=== PATIENT | female | born 1975 | race Caucasian/White ===

== ENCOUNTER → 2016-05-15 | Outpatient (CLI) | payer BC ==
--- NOTE | 2016-05-15 12:59 | ECHOF ---
Referral Reason:R00.2 palpitation R07.9 chest pain MEASUREMENTS -------- HEIGHT: 176.5 cm WEIGHT: 122.5 kg BP: RVIDd: 2.8 cm (< 3.3) IVSd: 1.2 cm (0.6 - 1.1) LVIDd: 4.6 cm (3.9 - 5.3) LVPWd: 1.4 cm (0.6 - 1.1) IVSs: 1.5 cm LVIDs: 3.6 cm LVPWs: 1.7 cm LAESV Index (A-L): 17.83 ml/m Ao Diam: 3.2 cm (2.0 - 3.7) LA Diam: 3.9 cm (2.7 - 3.8) MV EXCURSION: 19.089 mm (> 18.000) MV EF SLOPE: 48 mm/s (70 - 150) EPSS: 0.5 cm MV E Andreas: 0.96 m/s MV DecT: 214 ms MV A Andreas: 0.70 m/s MV E/A Ratio: 1.37 RAP: 5.00 mmHg RVSP: 15.43 mmHg FINDINGS -------- Sinus rhythm. Morbid Obesity There is mild concentric left ventricular hypertrophy. Overall left ventricular systolic function is low-normal with, an EF between 50 - 55 %. The right ventricle is normal in size. Normal LA size by volume 22+/-6 ml/m2. The right atrial size is normal. The aortic valve is trileaflet, and appears structurally normal. No aortic stenosis or regurgitation. Mild mitral regurgitation is present. Mild tricuspid regurgitation present. There is no evidence of pulmonary hypertension. The right ventricular systolic pressure, as measured by Doppler, is 15.43mmHg. There is no pulmonic regurgitation present. The aortic root size is normal. There is no pericardial effusion. CONCLUSIONS -------- 1. There is mild concentric left ventricular hypertrophy. 2. Overall left ventricular systolic function is low-normal with, an EF between 50 - 55 %. 3. Mild mitral regurgitation is present. 4. Mild tricuspid regurgitation present. 5. There is no evidence of pulmonary hypertension. 6. The right ventricular systolic pressure, as measured by Doppler, is 15.43mmHg. WAREHOUSE ORDER PICKER: Giovana Travis RDCS
== END | disposition home or self-care (01) ==
LOC: RADECHMAIN 10:38
PROVIDERS: ATTEND Family Medicine
DX: I08.1 Rheumatic disorders of both mitral and tricuspid valves (principal); I51.7 Cardiomegaly
CPT/HCPCS: 93225; 93226; 93306

== ENCOUNTER → 2017-01-15 | Outpatient (CLI) | payer BC ==
[2017-01-15 11:28] LABS: ALT 97 U/L (9-52); AST 110 U/L (14-36); Alkaline Phosphatase 122 U/L (38-126); Anion Gap 12 mmol/L; Blood Urea Nitrogen 11 mg/dL (7-17); Calcium 9.6 mg/dL (8.4-10.2); Carbon Dioxide 23 mmol/L (22-30); Chloride 101 mmol/L (98-107); Cholesterol 211 mg/dL (<200); Glucose 218 mg/dL (74-99); HDL Cholesterol 44 mg/dL (40-60); Non-African American GFR(MDRD) >60 (>60 ml/min/1.73 sqM); Potassium 4.6 mmol/L (3.5-5.1); Sodium 136 mmol/L (137-145); Total Bilirubin 0.5 mg/dL (0.2-1.3); Total Protein 6.9 g/dL (6.3-8.2)
== END | disposition home or self-care (01) ==
LOC: LABWHC1 10:27
PROVIDERS: ATTEND Nurse Practitioner Women's Health
DX: E04.9 Nontoxic goiter, unspecified (principal); E11.9 Type 2 diabetes mellitus without complications; I10 Essential (primary) hypertension
CPT/HCPCS: 36415; 80053; 80061; 84439; 84443

== ENCOUNTER 2017-02-09 12:14 | Day surgery (SDC) | payer BC ==
[2017-02-09 13:19] VITALS: PULSE 76; RESP 16; TEMP 97.3
[2017-02-09 14:52] VITALS: BP 121/73
--- NOTE | 2017-02-09 15:26 | US ---
EXAMINATION TYPE: US FNA thyroid DATE OF EXAM: 02/09/2017 COMPARISON: NONE HISTORY: Thyroid nodule, E04.1 Maximal barrier technique was utilized. Ultrasound using sterile technique. The skin overlying the no dule was localized with ultrasound and the overlying skin prepped and draped. Lidocaine used for loca l anesthesia. 4 passes with a 25-gauge needle were made into the nodule under ultrasound guidance. As pirate specimen submitted to cytology. Following the procedure hemostasis achieved. No immediate comp lication IMPRESSION: Status post ultrasound-guided fine-needle aspiration of thyroid nodule, pathology pending .
== END 2017-02-09 14:05 | disposition home or self-care (01) ==
LOC: RADPROMAIN 12:14
PROVIDERS: ATTEND Family Medicine
DX: E04.9 Nontoxic goiter, unspecified (principal); Z88.0 Allergy status to penicillin; Z88.2 Allergy status to sulfonamides; Z91.041 Radiographic dye allergy status
CPT/HCPCS: 10022; 36415; 76942; 88173; 88305

== ENCOUNTER → 2018-05-16 | Outpatient (CLI) | payer BC ==
--- NOTE | 2018-05-20 08:15 | MM ---
Reason for exam: screening (asymptomatic). Last mammogram was performed 4 years ago. Physical Findings: A clinical breast exam by your physician is recommended on an annual basis and results should be correlated with mammographic findings. MG Screening Mammo w CAD Bilateral CC and MLO view(s) were taken. Prior study comparison: May 19, 2014, bilateral MG screening mammo w CAD. There are scattered fibroglandular densities. No significant changes when compared with prior studies. ASSESSMENT: Benign, BI-RAD 2 RECOMMENDATION: Routine screening mammogram of both breasts in 1 year.
== END | disposition home or self-care (01) ==
LOC: RADMAMWWP 09:07
PROVIDERS: ATTEND Family Medicine
DX: Z12.31 Encounter for screening mammogram for malignant neoplasm of breast (principal)
CPT/HCPCS: 77067

== ENCOUNTER 2018-09-20 13:49 | Emergency (ER) | payer BC ==
[2018-09-20] MEDS ORDERED: SODIUM CHLORIDE 0.9% 1,000 ML IV STA (14:25)
[2018-09-20] MEDS ORDERED: KETOROLAC 30 MG/ML 1 ML VIAL IVP STA (14:25)
--- NOTE | 2018-09-20 14:41 | ED ---
Abdominal Pain HPI - General Chief Complaint: Abdominal Pain Stated Complaint: Abd Pain Time Seen by Provider: 09/20/18 14:13 Source: patient Mode of arrival: ambulatory Limitations: no limitations - History of Present Illness Initial Comments: Patient is a 43-year-old female presenting to the emergency Department with complaints of left lower quadrant pain 2 days. Patient describes pain as sharp, on and off. Admits to occasional radiation to the left flank area. Patient has occasional nausea as the pain increases. Patient denies fevers, chills, vomiting, history of kidney stones. Patient does admit to having polycystic kidneys and is supposed to have a 24 year hour urine, due to an increase in protein in her urine, but patient has yet to turn it in. Patient admits to having 3 C-sections and an appendectomy. Patient also has clips on b oth fallopian tubes. Patient states last BM was this morning, and was soft. Last mental cycle was 2 weeks ago. - Related Data Home Medications Medication Instructions Recorded Confirmed Atenolol [Tenormin] 25 mg PO DAILY 02/06/17 02/06/17 Linagliptin [Tradjenta] 5 mg PO DAILY 02/06/17 02/06/17 metFORMIN HCL 1,000 mg PO BID 02/06/17 02/06/17 Previous Rx's Medication Instructions Recorded Nitrofurantoin Monohyd/M-Cryst 100 mg PO Q12HR 5 Days #10 cap 09/20/18 [Macrobid] Allergies Allergy/AdvReac Type Severity Reaction Status Date / Time iodine Allergy Rash/Hives Verified 09/20/18 14:04 Penicillins Allergy Unknown Verified 09/20/18 14:04 Childhood Sulfa (Sulfonamide Allergy Rash/Hives Verified 09/20/18 14:04 Antibiotics) Review of Systems ROS Statement: Those systems with pertinent positive or pertinent negative responses have been documented in the HPI. ROS Other: All systems not noted in ROS Statement are negative. Past Medical History Past Medical History: Diabetes Mellitus, Hypertension, Thyroid Disorder History of Any Multi-Drug Resistant Organisms: None Reported Past Surgical History: Appendectomy, Section, Tubal Ligation Past Anesthesia/Blood Transfusion Reactions: No Reported Reaction Past Psychological History: No Psychological Hx Reported Smoking Status: Current every day smoker Past Alcohol Use History: Occasional Past Drug Use History: None Reported - Past Family History Mother Family Medical History: Cancer Additional Family Medical History / Comment(s): lung cancer General Exam - General Exam Comments Initial Comments: GENERAL: Well-appearing, well-nourished and in no acute distress. HEAD: Atraumatic, normocephalic. EYES: Pupils equal round and reactive to light, extraocular movements intact, sclera anicteric, conjunctiva are normal. ENT: TMs normal, nares patent, oropharynx clear without exudates. Moist mucous membranes. NECK: Normal range of motion, supple without lymphadenopathy or JVD. LUNGS: Breath sounds clear to auscultation bilaterally and equal. No wheezes rales or rhonchi. HEART: Regular rate and rhythm without murmurs, rubs or gallops. ABDOMEN: TTP left lower quadrant, with radiation to the left area. Soft, hypoactive bowel sounds. No guarding, no rebound. No masses appreciated. No CVA tenderness : Deferred EXTREMITIES: Normal range of motion, no pitting or edema. No clubbing or cyanosis. NEUROLOGICAL: Cranial nerves II through XII grossly intact. Normal speech, normal gait. PSYCH: Normal mood, normal affect. SKIN: Warm, Dry, normal turgor, no rashes or lesions noted. Limitations: no limitations Course Vital Signs 09/20/18 14:02 Temperature 98.3 F Pulse Rate 110 H Respiratory 20 Rate Blood Pressure 127/91 O2 Sat by Pulse 99 Oximetry Medical Decision Making - Medical Decision Making Patient is a 43-year-old female presenting to the ER with left lower quadrant pain on and off for 3 days. Patient states she does have some radiation to the left flank area. Patient denies fever, chills. Patient has history of previous abdominal surgeries including 3 C-sections and appendectomy. On exam patient has tenderness left lower quadrant. CBC and CMP are within normal limits. Harleen ent's CT shows slight splenomegaly and gallstones. No kidney stones. Transvaginal sounds shows left ovarian cyst. Small fibroids. No evidence of ovarian torsion. Patient will be discharged home with [facility] follow-up. Patient was okay with this plan. Return parameters were discussed. Case dis cussed with Dr. Rowe. - Lab Data Result diagrams: 09/20/18 14:46 09/20/18 14:46 Lab Results 09/20/18 09/20/18 09/20/18 Range/Units 14:46 14:46 15:00 WBC 11.3 H (3.8-10.6) k/uL RBC 4.79 (3.80-5.40) m/uL Hgb 13.0 (11.4-16.0) gm/dL Hct 37.2 (34.0-46.0) % MCV 77.6 L (80.0-100.0) fL MCH 27.1 (25.0-35.0) pg MCHC 34.9 (31.0-37.0) g/dL RDW 14.8 (11.5-15.5) % Plt Count 220 (150-450) k/uL Neutrophils % 72 % Lymphocytes % 19 % Monocytes % 4 % Eosinophils % 4 % Basophils % 1 % Neutrophils # 8.1 H (1.3-7.7) k/uL Lymphocytes # 2.1 (1.0-4.8) k/uL Monocytes # 0.4 (0-1.0) k/uL Eosinophils # 0.5 (0-0.7) k/uL Basophils # 0.1 (0-0.2) k/uL Poikilocytosis Slight Sodium 139 (137-145) mmol/L Potassium 4.0 (3.5-5.1) mmol/L Chloride 106 (98-107) mmol/L Carbon Dioxide 23 (22-30) mmol/L Anion Gap 10 mmol/L BUN 13 (7-17) mg/dL Creatinine 0.61 (0.52-1.04) mg/dL Est GFR (CKD-EPI)AfAm >90 (>60 ml/min/1.73 sqM) Est GFR (CKD-EPI)NonAf >90 (>60 ml/min/1.73 sqM) Glucose 111 H (74-99) mg/dL Calcium 9.5 (8.4-10.2) mg/dL Total Bilirubin 0.4 (0.2-1.3) mg/dL AST 17 (14-36) U/L ALT 13 (9-52) U/L Alkaline Phosphatase 87 (38-126) U/L Total Protein 7.1 (6.3-8.2) g/dL Albumin 4.2 (3.5-5.0) g/dL Lipase 117 (23-300) U/L Urine Color Urine Appearance (Clear) Urine pH (5.0-8.0) Ur Specific [place] (1.001-1.035) Urine Protein (Negative) Urine Glucose (UA) (Negative) Urine Ketones (Negative) Urine Blood (Negative) Urine Nitrite (Negative) Urine Bilirubin (Negative) Urine Urobilinogen (<2.0) mg/dL Ur Leukocyte Esterase (Negative) Urine RBC (0-5) /hpf Urine WBC (0-5) /hpf Ur Squamous Epith Cells (0-4) /hpf Hyaline Casts (0-2) /lpf Urine Mucus (None) /hpf Urine HCG, Qual Not Detected (Not Detectd) 09/20/18 Range/Units 15:00 WBC (3.8-10.6) k/uL RBC (3.80-5.40) m/uL Hgb (11.4-16.0) gm/dL Hct (34.0-46.0) % MCV (80.0-100.0) fL MCH (25.0-35.0) pg MCHC (31.0-37.0) g/dL RDW (11.5-15.5) % Plt Count (150-450) k/uL Neutrophils % % Lymphocytes % % Monocytes % % Eosinophils % % Basophils % % Neutrophils # (1.3-7.7) k/uL Lymphocytes # (1.0-4.8) k/uL Monocytes # (0-1.0) k/uL Eosinophils # (0-0.7) k/uL Basophils # (0-0.2) k/uL Poikilocytosis Sodium (137-145) mmol/L Potassium (3.5-5.1) mmol/L Chloride (98-107) mmol/L Carbon Dioxide (22-30) mmol/L Anion Gap mmol/L BUN (7-17) mg/dL Creatinine (0.52-1.04) mg/dL Est GFR (CKD-EPI)AfAm (>60 ml/min/1.73 sqM) Est GFR (CKD-EPI)NonAf (>60 ml/min/1.73 sqM) Glucose (74-99) mg/dL Calcium (8.4-10.2) mg/dL Total Bilirubin (0.2-1.3) mg/dL AST (14-36) U/L ALT (9-52) U/L Alkaline Phosphatase (38-126) U/L Total Protein (6.3-8.2) g/dL Albumin (3.5-5.0) g/dL Lipase (23-300) U/L Urine Color Yellow Urine Appearance Cloudy H (Clear) Urine pH 5.5 (5.0-8.0) Ur Specific [place] 1.021 (1.001-1.035) Urine Protein 2+ H (Negative) Urine Glucose (UA) Negative (Negative) Urine Ketones Negative (Negative) Urine Blood Negative (Negative) Urine Nitrite Negative (Negative) Urine Bilirubin Negative (Negative) Urine Urobilinogen <2.0 (<2.0) mg/dL Ur Leukocyte Esterase Moderate H (Negative) Urine RBC 6 H (0-5) /hpf Urine WBC 2 (0-5) /hpf Ur Squamous Epith Cells 12 H (0-4) /hpf Hyaline Casts 8 H (0-2) /lpf Urine Mucus Rare H (None) /hpf Urine HCG, Qual (Not Detectd) Disposition Clinical Impression: Left ovarian cyst, Left lower quadrant pain Disposition: HOME SELF-CARE Condition: Stable Instructions (If sedation given, give patient instructions): Abdominal Pain (ED) Additional Instructions: Please return to the Emergency Department if symptoms worsen or any other conc erns. Follow-up with [facility] for further management. Prescriptions: Nitrofurantoin Monohyd/M-Cryst [Macrobid] 100 mg PO Q12HR 5 Days #10 cap Is patient prescribed a controlled substance at d/c from ED?: No Referrals: Tr French MD [Primary Care Provider] - 1-2 days
[2018-09-20 14:55] LABS: Basophils # (A) 0.1 k/uL (0-0.2); Basophils % (A) 1 %; Eosinophils # (A) 0.5 k/uL (0-0.7); Eosinophils % (A) 4 %; HCT 37.2 % (34.0-46.0); Lymphocytes # (A) 2.1 k/uL (1.0-4.8); Lymphocytes % (A) 19 %; MCH 27.1 pg (25.0-35.0); MCHC 34.9 g/dL (31.0-37.0); MCV 77.6 fL (80.0-100.0); Mean Platelet Volume 6.9; Monocytes # (A) 0.4 k/uL (0-1.0); Monocytes % (A) 4 %; Neutrophils # (A) 8.1 k/uL (1.3-7.7); Neutrophils % (A) 72 %; Platelet Count 220 k/uL (150-450); Poikilocytosis Slight; RBC 4.79 m/uL (3.80-5.40); RDW 14.8 % (11.5-15.5); WBC 11.3 k/uL (3.8-10.6)
[2018-09-20 15:09] LABS: ALT 13 U/L (9-52); AST 17 U/L (14-36); African American GFR (CKD) >90 (>60 ml/min/1.73 sqM); Albumin 4.2 g/dL (3.5-5.0); Alkaline Phosphatase 87 U/L (38-126); Anion Gap 10 mmol/L; Blood Urea Nitrogen 13 mg/dL (7-17); Calcium 9.5 mg/dL (8.4-10.2); Carbon Dioxide 23 mmol/L (22-30); Chloride 106 mmol/L (98-107); Glucose 111 mg/dL (74-99); Lipase 117 U/L (23-300); Sodium 139 mmol/L (137-145); Total Bilirubin 0.4 mg/dL (0.2-1.3); Total Protein 7.1 g/dL (6.3-8.2)
[2018-09-20 15:17] LABS: Appearance,Urine Cloudy (Clear); Bilirubin,Urine Negative (Negative); Blood,Urine Negative (Negative); Color,Urine Yellow; Glucose,Urine (UA) Negative (Negative); Hyaline Casts,Urine 8 /lpf (0-2); Ketones,Urine Negative (Negative); Leukocyte Esterase,Urine Moderate (Negative); Mucus,Urine Rare /hpf; Nitrite,Urine Negative (Negative); PH, Urine 5.5 (5.0-8.0); Protein,Urine 2+ (Negative); RBC,Urine 6 /hpf (0-5); Specific Gravity,Urine 1.021 (1.001-1.035); Squamous Epithelial Cell,Urine 12 /hpf (0-4); Urobilinogen,Urine <2.0 mg/dL (<2.0)
--- NOTE | 2018-09-20 15:49 | CT ---
EXAMINATION TYPE: CT abdomen pelvis wo con DATE OF EXAM: 09/20/2018 COMPARISON: Prior CT 08/24/2015 HISTORY: Left flank pain. CT DLP: 840.7 mGycm Automated exposure control for dose reduction was used. TECHNIQUE: Helical acquisition of images from the lung bases through the pelvis. FINDINGS: Lack of contrast could compromise sensitivity of the exam. LUNG BASES: No significant abnormality is appreciated. AORTA: No significant abnormality is appreciated. LIVER/GB: Gallstones are present in the gallbladder. Liver shows no mass. PANCREAS: No significant abnormality is seen. SPLEEN: Enlarged measuring 16 cm in AP dimension ADRENALS: No significant abnormality is seen. KIDNEYS: No significant abnormality is seen. REPRODUCTIVE ORGANS: Gregor tubal ligation clips are in place bilaterally. URINARY BLADDER: Decompressed BOWEL: Postop changes are noted in the right hemiabdomen likely due to postcholecystectomy, no evide nt bowel obstruction. FREE AIR: No Free Air is visible. ASCITES: None visible. PELVIC ADENOPATHY: None visualized. RETROPERITONEAL ADENOPATHY: No Retroperitoneal Adenopathy visible. OSSEOUS STRUCTURES: No significant abnormality is seen. IMPRESSION: SPLENOMEGALY. NONCONTRAST EXAM. CHOLELITHIASIS. POSTOP CHANGES.
--- NOTE | 2018-09-20 17:26 | US ---
EXAMINATION TYPE: US transvaginal DATE OF EXAM: 09/20/2018 COMPARISON: CT CLINICAL HISTORY: Pain. LLQ pain x 4 days; (twins); C sections x 3; 2 months this year patient s tated has had irregular LMP TECHNIQUE: Transvaginal (TV). per EC physician Date of LMP: 08/26/2018 EXAM MEASUREMENTS: Uterus: 8.8 x 6.5 x 5.0 cm Endometrial Stripe: upper right endometrium = 1.1cm, upper left endometrium = 0.9cm Right Ovary: 3.3 x 2.6 x 2.6 cm Left Ovary: 5.1 x 3.4 x 2.9 cm 1. Uterus: Anteverted, hypoechoic oval fibroid in mid left myometrium = 1.0 x 1.0 x 1.0cm; multiple hyperechoic foci in MYRANDA may be calcifications. 2. Endometrium: diverges right and left in uppermost endometrium 3. Right Ovary: small follicles 4. Left Ovary: enlarged ovary; multiple follicles with largest as complex cyst = 2.3 x 2.7 x 2.7cm Spectral, color and waveform Doppler imaging shows good arterial and venous flow within the ovaries ; there is no evidence for ovarian torsion. 5. Bilateral Adnexa: wnl 6. Posterior cul-de-sac: wnl IMPRESSION: Complex left ovarian cyst. Small uterine fibroids. No evidence of ovarian torsion.
[2018-09-20 17:53] VITALS: RESP 18
[2018-09-20 18:09] VITALS: BP 136/95; PULSE 94; TEMP 98.6
== END 2018-09-20 18:08 | disposition home or self-care (01) ==
LOC: EC 13:49
DX: N83.202 Unspecified ovarian cyst, left side (principal); K80.20 Calculus of gallbladder without cholecystitis without obstruction; R16.1 Splenomegaly, not elsewhere classified; E11.9 Type 2 diabetes mellitus without complications; I10 Essential (primary) hypertension; F17.200 Nicotine dependence, unspecified, uncomplicated; Z79.84 Long term (current) use of oral hypoglycemic drugs; Z79.899 Other long term (current) drug therapy; Z88.0 Allergy status to penicillin; Z88.2 Allergy status to sulfonamides; Z91.048 Other nonmedicinal substance allergy status; Z90.89 Acquired absence of other organs
CPT/HCPCS: 36415; 80053; 83690; 85025; 81001; 81025; 93975; 76830; 74176; 99284; 96374; 96361; J1885

== ENCOUNTER 2019-04-21 17:08 | Observation (INO) | payer BC ==
[2019-04-21] MEDS ORDERED: ATENOLOL 25 MG TAB PO STA (17:30)
[2019-04-21] MEDS ORDERED: MORPHINE SULFATE 4 MG/ML SYRINGE IVP STA (17:30)
[2019-04-21] MEDS ORDERED: MAG HYDROX/AL HYDROX/SIMETH 30 ML, HYOSCYAMINE ELIXIR 10 ML, LIDOCAINE VISCOUS 2% 10 ML PO STA ×3 (17:31)
[2019-04-21 17:50] LABS: Basophils # (A) 0.1 k/uL (0-0.2); Basophils % (A) 1 %; Eosinophils # (A) 0.7 k/uL (0-0.7); Eosinophils % (A) 7 %; HCT 40.5 % (34.0-46.0); HGB 14.3 gm/dL (11.4-16.0); Lymphocytes # (A) 2.2 k/uL (1.0-4.8); Lymphocytes % (A) 22 %; MCH 28.6 pg (25.0-35.0); MCHC 35.3 g/dL (31.0-37.0); Mean Platelet Volume 6.8; Monocytes # (A) 0.4 k/uL (0-1.0); Monocytes % (A) 3 %; Neutrophils # (A) 6.6 k/uL (1.3-7.7); Neutrophils % (A) 65 %; Platelet Count 266 k/uL (150-450); RBC 5.01 m/uL (3.80-5.40); RDW 14.7 % (11.5-15.5); WBC 10.1 k/uL (3.8-10.6)
--- NOTE | 2019-04-21 17:56 | ED ---
General Adult HPI - General Chief complaint: Chest Pain Stated complaint: Chest pain/sob/lt arm numb Time Seen by Provider: 04/21/19 17:21 Source: patient, RN notes reviewed, old records reviewed Mode of arrival: wheelchair Limitations: no limitations - History of Present Illness Initial comments: 44-year-old female history of hypertension, current smoker presenting with chest pain. Patient had had indigestion and heartburn throughout the day today. Approximately 3 hours prior to arrival she developed some left arm numbness and pain which was transient in nature. She had persistent heartburn at that time. She herself has no known history of coronary artery disease. Her father at age 48 [address] She is a current smoker. She went to a local pharmacy to have her blood pressure checked and it was quite elevated. She has been off of her atenolol because she ran out. She has persistent dull central chest pain which she initially reported as a burning sensation. No arm pain or radiating pain at the time my evaluation. - Related Data Home Medications Medication Instructions Recorded Confirmed Atenolol [Tenormin] 25 mg PO DAILY 02/06/17 02/06/17 Linagliptin [Tradjenta] 5 mg PO DAILY 02/06/17 02/06/17 metFORMIN HCL 1,000 mg PO BID 02/06/17 02/06/17 Previous Rx's Medication Instructions Recorded Nitrofurantoin Monohyd/M-Cryst 100 mg PO Q12HR 5 Days #10 cap 09/20/18 [Macrobid] Allergies Allergy/AdvReac Type Severity Reaction Status Date / Time iodine Allergy Rash/Hives Verified 04/21/19 17:16 Penicillins Allergy Unknown Verified 04/21/19 17:16 Childhood Sulfa (Sulfonamide Allergy Rash/Hives Verified 04/21/19 17:16 Antibiotics) Review of Systems ROS Statement: Those systems with pertinent positive or pertinent negative responses have been documented in the HPI. ROS Other: All systems not noted in ROS Statement are negative. Past Medical History Past Medical History: Diabetes Mellitus, Hypertension, Thyroid Disorder History of Any Multi-Drug Resistant Organisms: None Reported Past Surgical History: Appendectomy, Section, Tubal Ligation Past Anesthesia/Blood Transfusion Reactions: No Reported Reaction Past Psychological History: No Psychological Hx Reported Smoking Status: Current every day smoker Past Alcohol Use History: Occasional Past Drug Use History: None Reported - Past Family History Mother Family Medical History: Cancer Additional Family Medical History / Comment(s): lung cancer General Exam Limitations: no limitations General appearance: alert, in no apparent distress Head exam: Present: atraumatic, normocephalic Eye exam: Present: normal appearance, PERRL, EOMI ENT exam: Present: normal exam Neck exam: Present: normal inspection. Absent: tenderness, meningismus Respiratory exam: Present: normal lung sounds bilaterally. Absent: respiratory distress, wheezes Cardiovascular Exam: Present: normal rhythm, tachycardia GI/Abdominal exam: Present: soft. Absent: distended, tenderness, guarding, rebound Extremities exam: Present: normal inspection, normal capillary refill, other (Distal pulses intact, 2+ radial bilaterally). Absent: pedal edema Neurological exam: Present: alert, oriented X3, CN II-XII intact. Absent: motor sensory deficit Psychiatric exam: Present: normal affect, normal mood Skin exam: Present: warm, dry, intact. Absent: cyanosis, diaphoretic Course Vital Signs 04/21/19 04/21/19 17:13 18:05 Temperature 98.3 F Pulse Rate 103 H 79 Respiratory 20 18 Rate Blood Pressure 187/100 154/98 O2 Sat by Pulse 100 98 Oximetry - Reevaluation(s) Reevaluation #1: 04/21/19 19:12 Patient refuses nitroglycerin. EKG Findings - EKG Comments: EKG Findings:: EKG: Normal sinus rhythm, possible anterior infarct, no ST segment elevation T waves inverted in lead 3 rate of 91, AL interval 182, QRS duration 106, QTC 482. Medical Decision Making - Medical Decision Making 44-year-old female presenting with burning lower chest pain. Pain did radiate to her left arm. Patient is extremely high risk, she has a history of hypertension, diabetes she is a current smoker. She has a strong family history including her father of CT at age 38. Her EKG is sinus rhythm with no ST segment. Chest x-ray negative for acute cardiopulmonary disease. Laboratory studies are within normal limits including a normal CBC, normal CMP, negative d- dimer, negative initial troponin. Given the patient's risk factors I will keep her in observation for serial cardiac enzymes, telemetry, and cardiology consultation. - Lab Data Result diagrams: 04/21/19 17:34 04/21/19 17:34 Lab Results 04/21/19 04/21/19 04/21/19 Range/Units 17:34 17:34 17:34 WBC 10.1 (3.8-10.6) k/uL RBC 5.01 (3.80-5.40) m/uL Hgb 14.3 (11.4-16.0) gm/dL Hct 40.5 (34.0-46.0) % MCV 81.0 (80.0-100.0) fL MCH 28.6 (25.0-35.0) pg MCHC 35.3 (31.0-37.0) g/dL RDW 14.7 (11.5-15.5) % Plt Count 266 (150-450) k/uL Neutrophils % 65 % Lymphocytes % 22 % Monocytes % 3 % Eosinophils % 7 % Basophils % 1 % Neutrophils # 6.6 (1.3-7.7) k/uL Lymphocytes # 2.2 (1.0-4.8) k/uL Monocytes # 0.4 (0-1.0) k/uL Eosinophils # 0.7 (0-0.7) k/uL Basophils # 0.1 (0-0.2) k/uL PT 10.2 (9.0-12.0) sec INR 1.0 (<1.2) APTT 23.3 (22.0-30.0) sec D-Dimer 0.29 (<0.60) mg/L FEU Sodium 140 (137-145) mmol/L Potassium 4.5 (3.5-5.1) mmol/L Chloride 106 (98-107) mmol/L Carbon Dioxide 25 (22-30) mmol/L Anion Gap 9 mmol/L BUN 19 H (7-17) mg/dL Creatinine 0.56 (0.52-1.04) mg/dL Est GFR (CKD-EPI)AfAm >90 (>60 ml/min/1.73 sqM) Est GFR (CKD-EPI)NonAf >90 (>60 ml/min/1.73 sqM) Glucose 110 H (74-99) mg/dL Calcium 10.1 (8.4-10.2) mg/dL Magnesium 1.8 (1.6-2.3) mg/dL Total Bilirubin 0.5 (0.2-1.3) mg/dL AST 29 (14-36) U/L ALT 21 (4-34) U/L Alkaline Phosphatase 94 (38-126) U/L Troponin I (0.000-0.034) ng/mL NT-Pro-B Natriuret Pep pg/mL Total Protein 7.1 (6.3-8.2) g/dL Albumin 4.2 (3.5-5.0) g/dL Lipase 206 (23-300) U/L 04/21/19 04/21/19 Range/Units 17:34 17:34 WBC (3.8-10.6) k/uL RBC (3.80-5.40) m/uL Hgb (11.4-16.0) gm/dL Hct (34.0-46.0) % MCV (80.0-100.0) fL MCH (25.0-35.0) pg MCHC (31.0-37.0) g/dL RDW (11.5-15.5) % Plt Count (150-450) k/uL Neutrophils % % Lymphocytes % % Monocytes % % Eosinophils % % Basophils % % Neutrophils # (1.3-7.7) k/uL Lymphocytes # (1.0-4.8) k/uL Monocytes # (0-1.0) k/uL Eosinophils # (0-0.7) k/uL Basophils # (0-0.2) k/uL PT (9.0-12.0) sec INR (<1.2) APTT (22.0-30.0) sec D-Dimer (<0.60) mg/L FEU Sodium (137-145) mmol/L Potassium (3.5-5.1) mmol/L Chloride (98-107) mmol/L Carbon Dioxide (22-30) mmol/L Anion Gap mmol/L BUN (7-17) mg/dL Creatinine (0.52-1.04) mg/dL Est GFR (CKD-EPI)AfAm (>60 ml/min/1.73 sqM) Est GFR (CKD-EPI)NonAf (>60 ml/min/1.73 sqM) Glucose (74-99) mg/dL Calcium (8.4-10.2) mg/dL Magnesium (1.6-2.3) mg/dL Total Bilirubin (0.2-1.3) mg/dL AST (14-36) U/L ALT (4-34) U/L Alkaline Phosphatase (38-126) U/L Troponin I <0.012 (0.000-0.034) ng/mL NT-Pro-B Natriuret Pep 28 pg/mL Total Protein (6.3-8.2) g/dL Albumin (3.5-5.0) g/dL Lipase (23-300) U/L Disposition Clinical Impression: Chest pain Disposition: ADMITTED IP TO THIS HOSP Condition: Stable Is patient prescribed a controlled substance at d/c from ED?: No Referrals: Tr French MD [Primary Care Provider] - 1-2 days Decision to Admit Reason: Admit from EC Decision Date: 04/21/19 Decision Time: 19:12
[2019-04-21 18:04] LABS: D-Dimer 0.29 mg/L FEU (<0.60); Partial Thromboplastin Time 23.3 sec (22.0-30.0); Prothrombin Time 10.2 sec (9.0-12.0)
--- NOTE | 2019-04-21 18:06 | XR ---
EXAMINATION TYPE: XR chest 2V DATE OF EXAM: 04/21/2019 COMPARISON: 11/04/2012 HISTORY: Chest pain TECHNIQUE: FINDINGS: Heart is normal. Lungs are clear. There is no heart failure. There are no hilar masses. The re is right side aortic arch. There are chest leads. Bony thorax is intact. IMPRESSION: No active cardiopulmonary disease. No change.
[2019-04-21 18:08] VITALS: RESP 18
[2019-04-21 18:09] LABS: ALT 21 U/L (4-34); AST 29 U/L (14-36); African American GFR (CKD) >90 (>60 ml/min/1.73 sqM); Albumin 4.2 g/dL (3.5-5.0); Alkaline Phosphatase 94 U/L (38-126); Anion Gap 9 mmol/L; Blood Urea Nitrogen 19 mg/dL (7-17); Calcium 10.1 mg/dL (8.4-10.2); Carbon Dioxide 25 mmol/L (22-30); Chloride 106 mmol/L (98-107); Glucose 110 mg/dL (74-99); Magnesium 1.8 mg/dL (1.6-2.3); Non-African American GFR(CKD) >90 (>60 ml/min/1.73 sqM); Potassium 4.5 mmol/L (3.5-5.1); Sodium 140 mmol/L (137-145); Total Bilirubin 0.5 mg/dL (0.2-1.3); Total Protein 7.1 g/dL (6.3-8.2)
[2019-04-21] MEDS ORDERED: ASPIRIN 325 MG TAB PO STA (18:36)
[2019-04-21] MEDS ORDERED: PANTOPRAZOLE 40 MG/10 ML VIAL IVP STA (18:37)
[2019-04-21] MEDS ORDERED: NITROGLYCERIN SL TABS 0.4 MG TAB SUBLINGUAL STA (18:37)
[2019-04-21] MEDS ORDERED: HYDROmorphone 0.5 MG/0.5 ML SYRINGE IVP PRN (19:08)
[2019-04-21] MEDS ORDERED: NALOXONE 0.4 MG/ML 1 ML VIAL IV PRN (19:08)
[2019-04-21] MEDS ORDERED: ONDANSETRON 4 MG/2 ML VIAL IVP PRN (19:08)
[2019-04-21] MEDS: PANTOPRAZOLE 40 MG/10 ML VIAL IVP SCH (21:01)
[2019-04-22] MEDS: ACETAMINOPHEN TAB 325 MG TAB PO PRN ×2 (03:49→10:15)
[2019-04-22] MEDS ORDERED: metFORMIN 500 MG TAB PO SCH (07:30)
[2019-04-22] MEDS ORDERED: amLODIPine 5 MG TAB PO SCH (09:00)
[2019-04-22] MEDS ORDERED: ATENOLOL 25 MG TAB PO SCH (09:00)
[2019-04-22] MEDS ORDERED: LOSARTAN 25 MG TAB PO SCH (10:00)
[2019-04-22] MEDS: PANTOPRAZOLE 40 MG/10 ML VIAL IVP SCH (10:16)
--- NOTE | 2019-04-22 10:41 | P.CRDCN ---
History of Present Illness History of present illness: HISTORY OF PRESENTING ILLNESS This is a pleasant 44-year-old female past medical history significant for diabetes mellitus, hypertension, hypothyroid, chronic nicotine dependence a nd obesity. She follows in the office with Dr. Jaquez. She denies personal history of coronary artery disease but her father at the age of 38 from [place]. We have been asked to see in consultation for chest pain. She states she ate goulosh for lunch yesterday and shortly thereafter she started feeling burning in the chest. She felt like it was heart burn so she drank some milk and took rolaids. These modalities were not helping. She had been out of her blood pressure medication all week so she went to the pharmacy to check her blood pressure. According to her it was over 180 systolic. Given her family history and symptoms she came in for further evaluation. She states her last stress test in the office has been over 2 years ago. DIAGNOSTICS EKG reveals sinus mechanism with no acute ST or T-wave changes. Chest xray negative for an acute cardiopulmonary process. Laboratory reviewed, CBC unremarkable, d-dimer 0.29, sodium 140, potassium 4.5, creatinine 0.56, cardiac enzymes negative x3, proBNP 28. Current cardiac medications include atenolol 25 mg daily. REVIEW OF SYSTEMS At the time of my exam: CONSTITUTIONAL: Denies fever or chills. CARDIOVASCULAR: Denies chest pain, shortness of breath, orthopnea, PND or palpitations. RESPIRATORY: Denies cough. GASTROINTESTINAL: Denies abdominal pain, diarrhea, constipation, nausea or vomiting. MUSCULOSKELETAL: Denies myalgias. NEUROLOGIC: Denies numbness, tingling or weakness. ENDOCRINE: Denies fatigue, weight change, polydipsia or polyurina. GENITOURINARY: Denies burning, hematuria or urgency with micturation. HEMATOLOGIC: Denies history of anemia or bleeding. PHYSICAL EXAMINATION Blood pressure 147/93 heart rate 67 afebrile and maintaining oxygen saturation on room air. CONSTITUTIONAL: No apparent distress. Obese. HEENT: Head is normocephalic. Pupils are equal, round. Sclerae anicteric. Mucous membranes of the mouth are moist. No JVD. No carotid bruit. CHEST EXAMINATION: Lungs are clear to auscultation. No chest wall tenderness is noted on palpation or with deep breathing. HEART EXAMINATION: Regular rate and rhythm. S1, S2 heard. No murmurs, gallops or rub. ABDOMEN: Soft, nontender. Positive bowel sounds. EXTREMITIES: 2+ peripheral pulses, no lower extremity edema and no calf tenderness. NEUROLOGIC EXAMINATION: Patient is awake, alert and oriented x3. ASSESSMENT Chest pain, atypical. An acute event has been ruled out. Hypertension, uncontrolled. Non-compliance with daily medications daily. Has been out of Rx for over 1-week Chronic nicotine dependence Obesity, BMI 34 PLAN An acute coronary event has been ruled out. Echocardiogram has been ordered per PCP and will be reviewed. Recommend adding losartan to daily regimen. Check lipid profile and add atorvastatin if indicated. Perform stress echocardiogram to assess for stress induced ischemia. Smoking cessation recommended along with diet and exercise. Thank you kindly for this consultation. Nurse Practitioner note has been reviewed, I agree with a documented findings and plan of care. Patient was seen and examined. Past Medical History Past Medical History: Diabetes Mellitus, Hypertension, Thyroid Disorder History of Any Multi-Drug Resistant Organisms: None Reported Past Surgical History: Appendectomy, Section, Tubal Ligation Past Anesthesia/Blood Transfusion Reactions: No Reported Reaction Past Psychological History: No Psychological Hx Reported Smoking Status: Light tobacco smoker Past Alcohol Use History: Occasional Past Drug Use History: None Reported - Past Family History Mother Family Medical History: Cancer Additional Family Medical History / Comment(s): lung cancer Father Family Medical History: Coronary Artery Disease (CAD) Medications and Allergies Home Medications Medication Instructions Recorded Confirmed Type Atenolol [Tenormin] 25 mg PO DAILY 02/06/17 04/21/19 History Acetaminophen Tab [Tylenol Tab] 325 - 650 mg PO Q4H PRN 04/21/19 04/21/19 History Nystatin/Triamcin 1 applic TOPICAL BID PRN 04/21/19 04/21/19 History [Nystatin-Triamcinolone Cream] metFORMIN HCL [Glucophage] 1,000 mg PO DAILY 04/21/19 04/21/19 History Allergies Allergy/AdvReac Type Severity Reaction Status Date / Time iodine Allergy Anaphylaxis Verified 04/21/19 19:41 Penicillins Allergy Rash/Hives Verified 04/21/19 19:41 shellfish derived Allergy Anaphylaxis Verified 04/21/19 19:41 Sulfa (Sulfonamide Allergy Rash/Hives Verified 04/21/19 19:41 Antibiotics) Physical Exam Vitals: Vital Signs Temp Pulse Pulse Resp BP BP BP 04/22/19 07:35 97.9 F 67 18 147/93 04/22/19 04:00 97.9 F 70 18 133/90 04/21/19 23:38 74 18 04/21/19 23:24 97.6 F 74 18 136/83 04/21/19 21:37 72 18 04/21/19 20:45 97.9 F 86 72 18 146/96 163/95 04/21/19 20:44 86 18 146/96 04/21/19 18:05 79 18 154/98 04/21/19 17:13 98.3 F 103 H 20 187/100 Pulse Ox 04/22/19 07:35 98 04/22/19 04:00 97 04/21/19 23:38 04/21/19 23:24 97 04/21/19 21:37 04/21/19 20:45 99 04/21/19 20:44 98 04/21/19 18:05 98 04/21/19 17:13 100 Intake and Output 04/21/19 04/22/19 04/22/19 22:59 06:59 14:59 Other: # Voids 1 Weight 107.139 kg Results 04/21/19 17:34 04/21/19 17:34 Cardiac Enzymes 04/21/19 04/21/19 04/22/19 Range/Units 17:34 17:34 01:43 AST 29 (14-36) U/L Troponin I <0.012 <0.012 (0.000-0.034) ng/mL 04/22/19 Range/Units 06:33 AST (14-36) U/L Troponin I <0.012 (0.000-0.034) ng/mL Coagulation 04/21/19 Range/Units 17:34 PT 10.2 (9.0-12.0) sec APTT 23.3 (22.0-30.0) sec CBC 04/21/19 Range/Units 17:34 WBC 10.1 (3.8-10.6) k/uL RBC 5.01 (3.80-5.40) m/uL Hgb 14.3 (11.4-16.0) gm/dL Hct 40.5 (34.0-46.0) % Plt Count 266 (150-450) k/uL Comprehensive Metabolic Panel 04/21/19 Range/Units 17:34 Sodium 140 (137-145) mmol/L Potassium 4.5 (3.5-5.1) mmol/L Chloride 106 (98-107) mmol/L Carbon Dioxide 25 (22-30) mmol/L BUN 19 H (7-17) mg/dL Creatinine 0.56 (0.52-1.04) mg/dL Glucose 110 H (74-99) mg/dL Calcium 10.1 (8.4-10.2) mg/dL AST 29 (14-36) U/L ALT 21 (4-34) U/L Alkaline Phosphatase 94 (38-126) U/L Total Protein 7.1 (6.3-8.2) g/dL Albumin 4.2 (3.5-5.0) g/dL Current Medications Generic Name Dose Route Start Last Admin Trade Name Freq PRN Reason Stop Dose Admin Acetaminophen 650 mg 04/21/19 19:08 04/22/19 03:49 Tylenol Tab PO 650 mg Q6HR PRN Administration Mild Pain or Fever > 100.5 Atenolol 25 mg 04/22/19 09:00 Tenormin PO DAILY MITA Hydromorphone HCl 0.5 mg 04/21/19 19:08 Dilaudid IVP Q3HR PRN Moderate Pain Metformin HCl 1,000 mg 04/22/19 07:30 Glucophage PO AC-BID MITA Naloxone HCl 0.2 mg 04/21/19 19:08 Narcan IV Q2M PRN Opioid Reversal Ondansetron HCl 4 mg 04/21/19 19:08 Zofran IVP Q8HR PRN Nausea And Vomiting Pantoprazole Sodium 40 mg 04/21/19 21:00 04/21/19 21:01 Protonix IVP Not Given BID MITA Intake and Output 04/21/19 04/22/19 04/22/19 22:59 06:59 14:59 Other: # Voids 1 Weight 107.139 kg 04/21/19 17:34 04/21/19 17:34
[2019-04-22 11:00] LABS: Cholesterol 216 mg/dL (<200); HDL Cholesterol 45 mg/dL (40-60); LDL Cholesterol,Calculated 146 mg/dL (0-99); Triglycerides 125 mg/dL (<150)
[2019-04-22 11:57] LABS: Glucose,Whole Blood 140 mg/dL (75-99)
--- NOTE | 2019-04-22 12:00 | ECHOF ---
Referral Reason:cp MEASUREMENTS -------- HEIGHT: 175.3 cm WEIGHT: 107.0 kg BP: RVIDd: 3.4 cm (< 3.3) IVSd: 1.4 cm (0.6 - 1.1) LVIDd: 4.5 cm (3.9 - 5.3) LVPWd: 1.4 cm (0.6 - 1.1) IVSs: 1.6 cm LVIDs: 4.1 cm LVPWs: 1.5 cm LAESV Index (A-L): 24.20 ml/m Ao Diam: 3.2 cm (2.0 - 3.7) AV Cusp: 1.8 cm (1.5 - 2.6) MV EXCURSION: 17.701 mm (> 18.000) MV EF SLOPE: 58 mm/s (70 - 150) EPSS: 0.9 cm MV E Andreas: 0.71 m/s MV DecT: 220 ms MV A Andreas: 0.76 m/s MV E/A Ratio: 0.93 RAP: 5.00 mmHg RVSP: 11.77 mmHg FINDINGS -------- Sinus rhythm. This was a technically good study. The left ventricular size is normal. There is mild concentric left ventricular hypertrophy. Overa ll left ventricular systolic function is normal with, an EF between 55 - 60 %. The diastolic fillin g pattern is normal for the age of the patient 17.13. The right ventricle is normal in size. The left atrial size is normal. Mild spontaneous echo contrast present in the left atrium. The right atrial size is normal. There is mild aortic valve sclerosis. There is no evidence of aortic regurgitation. Mild mitral annular calcification present. Mild mitral regurgitation is present. Mild tricuspid regurgitation present. Right ventricular systolic pressure is normal at < 35 mmHg. There is no evidence of pulmonary hypertension. There is no pulmonic regurgitation present. The aortic root size is normal. There is no pericardial effusion. CONCLUSIONS -------- 1. Sinus rhythm. 2. This was a technically good study. 3. The left ventricular size is normal. 4. There is mild concentric left ventricular hypertrophy. 5. Overall left ventricular systolic function is normal with, an EF between 55 - 60 %. 6. The diastolic filling pattern is normal for the age of the patient 17.13 7. The right ventricle is normal in size. 8. The left atrial size is normal. 9. Mild spontaneous echo contrast present in the left atrium. 10. The right atrial size is normal. 11. There is mild aortic valve sclerosis. 12. Mild mitral annular calcification present. 13. Mild mitral regurgitation is present. 14. Mild tricuspid regurgitation present. 15. Right ventricular systolic pressure is normal at < 35 mmHg. 16. There is no evidence of pulmonary hypertension. 17. There is no pulmonic regurgitation present. 18. The aortic root size is normal. 19. There is no pericardial effusion. [employer]FFIC DIVISION COMMANDING OFFICER: Giovana Travis RDCS
[2019-04-22 12:37] VITALS: BP 134/87; PULSE 92; TEMP 98.3
--- NOTE | 2019-04-22 13:50 | ECHOS ---
STRESS ECHOCARDIOGRAM DATE OF SERVICE: 04/22/2019 INDICATIONS: Chest pain. MEDICATIONS: BASELINE HEART RATE: 73 BASELINE BLOOD PRESSURE: 150/105 MAXIMUM HEART RATE: 157 MAXIMUM BLOOD PRESSURE: 181/84 85% MPHR: 150 100% MPHR: 177 METS: 12.1 MAXIMUM STAGE REACHED: IV TOTAL EXERCISE TIME: 11 minutes. CLINICAL INFORMATION: Patient was exercised for a total period of 11 minutes. The peak heart rate of 157 was achieved. Maximum blood pressure of 181/84 mmHg was noted. Resting EKG shows normal sinus rhythm with normal [place] interval and QRS duration and normal ST-T waves. No ST- segment depression suggestive of ischemia is noted. The baseline echocardiographic images reveal normal left ventricular chamber size with normal left ventricular systolic function. In the immediate post exercise periods, normal increase in the wall thickness and contractility is noted. FINAL IMPRESSION: 1. This stress echocardiographic study is negative for stress-induced ischemia. 2. EKG portion of the stress test is not suggestive of ischemia. MMODL / IJN: [id number] /
--- NOTE | 2019-04-22 14:09 | P.HPIM ---
History of Present Illness H&P Date: 04/22/19 Chief Complaint: Chest Pain HISTORY & PHYSICAL & DISCHARGE SUMMARY This is a 44-year-old female, history of diabetes mellitus, hypertension, hyp othyroidism, ongoing nicotine dependence, family history of CAD-father at age 48 from an [place] ,presented to the ER with complaints of heartburn, indigestion throughout the day after eating goulash that later developed into fluctuating bilateral dull chest pain, radiating down left arm. Took Rolaids in addition to milk, with no relief. She checked her blood pressure at a local pharmacy, stating it was elevated as she had run out of her atenolol this week. Blood pressure on admission 187/100. Troponin is negative 3. Triglycerides 125 cholesterol 216, LDL 146, HDL 45. CBC, BMP unremarkable. Magnesium 1.8. D- dimer 0.29. Afebrile, normal WBC, maintaining O2 sats in the high 90s to 100 on room air. EKG reported normal sinus rhythm, possible anterior infarct. Chest x-ray reporting no active cardiopulmonary disease, no change. Blood sugars controlled. Cardiology consulted, evaluated patient, and scheduled patient for stress test. Echo reporting a normal LV function, EF 55-60%. Review of Systems ROS Statement: Those systems with pertinent positive or pertinent negative responses have been documented in the HPI. ROS Other: All systems not noted in ROS Statement are negative. Past Medical History Past Medical History: Diabetes Mellitus, Hypertension, Thyroid Disorder History of Any Multi-Drug Resistant Organisms: None Reported Past Surgical History: Appendectomy, Section, Tubal Ligation Past Anesthesia/Blood Transfusion Reactions: No Reported Reaction Past Psychological History: No Psychological Hx Reported Smoking Status: Light tobacco smoker Past Alcohol Use History: Occasional Past Drug Use History: None Reported - Past Family History Mother Family Medical History: Cancer Additional Family Medical History / Comment(s): lung cancer Father Family Medical History: Coronary Artery Disease (CAD) Medications and Allergies Home Medications Medication Instructions Recorded Confirmed Type Acetaminophen Tab [Tylenol] 325 - 650 mg PO Q4H PRN 04/21/19 04/21/19 History Nystatin/Triamcin 1 applic TOPICAL BID PRN 04/21/19 04/21/19 History [Nystatin-Triamcinolone Cream] metFORMIN HCL [Glucophage] 1,000 mg PO DAILY 04/21/19 04/21/19 History Atenolol [Tenormin] 25 mg PO DAILY #30 tab 04/22/19 Rx Atorvastatin [Lipitor] 20 mg PO DAILY #30 tab 04/22/19 Rx Losartan [Cozaar] 25 mg PO DAILY #30 tab 04/22/19 Rx Pantoprazole Sodium [Protonix] 40 mg PO DAILY #30 tablet. 04/22/19 Rx Allergies Allergy/AdvReac Type Severity Reaction Status Date / Time iodine Allergy Anaphylaxis Verified 04/21/19 19:41 Penicillins Allergy Rash/Hives Verified 04/21/19 19:41 shellfish derived Allergy Anaphylaxis Verified 04/21/19 19:41 Sulfa (Sulfonamide Allergy Rash/Hives Verified 04/21/19 19:41 Antibiotics) Physical Exam Vitals: Vital Signs Temp Pulse Pulse Resp BP BP BP 04/22/19 12:00 67 18 04/22/19 08:00 67 18 04/22/19 07:35 97.9 F 67 18 147/93 04/22/19 04:00 97.9 F 70 18 133/90 04/21/19 23:38 74 18 04/21/19 23:24 97.6 F 74 18 136/83 04/21/19 21:37 72 18 04/21/19 20:45 97.9 F 86 72 18 146/96 163/95 04/21/19 20:44 86 18 146/96 04/21/19 18:05 79 18 154/98 04/21/19 17:13 98.3 F 103 H 20 187/100 Pulse Ox 04/22/19 12:00 04/22/19 08:00 04/22/19 07:35 98 04/22/19 04:00 97 04/21/19 23:38 04/21/19 23:24 97 04/21/19 21:37 04/21/19 20:45 99 04/21/19 20:44 98 04/21/19 18:05 98 04/21/19 17:13 100 Intake and Output 04/21/19 04/22/19 04/22/19 22:59 06:59 14:59 Other: Voiding Method Toilet # Voids 1 2 Weight 107.139 kg 107.14 kg PHYSICAL EXAM: VITAL SIGNS: As above GENERAL: Sitting up in bed, no acute distress HEENT: Conjunctivae normal. eyes normal. NECK: No JVD. No thyroid enlargement. No LNs CARDIOVASCULAR: S1, S2 regular.. No murmur RESPIRATION: Breath sounds diminished in the bases. No rhonchi or crackles. No bronchial breathing. No chest wall tenderness. ABDOMEN: Soft, nontender . No guarding. no masses palpable. No ascites, No hepatosplenomegaly.Bowel sounds heard. LEGS: No edema. no swelling PSYCHIATRY: Alert and oriented X3, mood and affect normal. NERVOUS SYSTEM: Cranial N 2-12 grossly normal. Moves all 4 limbs. Diffuse weakness No focal deficits. Strength and sensation grossly intact.. Skin: no rash Lymphatic system. No LN neck axilla. Results CBC & Chem 7: 04/21/19 17:34 04/21/19 17:34 Labs: Abnormal Lab Results - Last 24 Hours (Table) 04/21/19 04/22/19 04/22/19 Range/Units 17:34 06:33 11:55 BUN 19 H (7-17) mg/dL Glucose 110 H (74-99) mg/dL POC Glucose (mg/dL) 140 H (75-99) mg/dL Cholesterol 216 H (<200) mg/dL LDL Cholesterol, Calc 146 H (0-99) mg/dL Thrombosis Risk Factor Assmnt - Choose All That Apply Any of the Below Risk Factors Present?: Yes Each Factor Represents 1 point: Acute LA, Age 41-60 years, Obesity (BMI >25) Other Risk Factors: No Other congenital or acquired thrombophilia - If yes, enter type in comment: No Thrombosis Risk Factor Assessment Total Risk Factor Score: 3 Thrombosis Risk Factor Assessment Level: Moderate Risk Assessment and Plan Assessment: Acute chest pain, acute coronary syndrome ruled out, in a patient with family history of CAD Diabetes mellitus Hypertension, uncontrolled, noncompliant Hypothyroidism Ongoing nicotine dependence Obesity, BMI 34.9 Hyperlipidemia Plan: Continue current medication regime ,monitoring and symptomatic treatment.NPO. Stress test pending. Smoking cessation reinforced. Medication compliance. Discharge planning in progress pending stress results, cardiology final DC recommendations. and clearance. Received verbal report stress test normal, Echo reporting EF 55-60%, patient cleared for discharge. Patient is being discharged home in a stable condition with guarded prognosis. The impression and plan of care has been dictated as directed. : I performed a history and examination of this patient, discussed the same with the dictator. I agree with the dictator's note ,documented as a scribe. Any a dditional findings or plans will be noted.
[2019-04-22] MEDS ORDERED: PANTOPRAZOLE 40 MG TABLET PO SCH (17:30)
[2019-04-23] MEDS ORDERED: ATORVASTATIN 20 MG TAB PO SCH (09:00)
== END 2019-04-22 13:48 ==
LOC: EC 17:08 → 1SOBS 19:09
PROVIDERS: ADMIT Family Medicine; ATTEND Family Medicine
DX: R07.89 Other chest pain (principal); I10 Essential (primary) hypertension; E11.9 Type 2 diabetes mellitus without complications; F17.200 Nicotine dependence, unspecified, uncomplicated; E03.9 Hypothyroidism, unspecified; E66.9 Obesity, unspecified; Z68.34 Body mass index [BMI] 34.0-34.9, adult; Z91.14 Patient's other noncompliance with medication regimen; Z90.49 Acquired absence of other specified parts of digestive tract; Z88.0 Allergy status to penicillin; Z88.2 Allergy status to sulfonamides; Z91.048 Other nonmedicinal substance allergy status; Z79.84 Long term (current) use of oral hypoglycemic drugs; Z79.899 Other long term (current) drug therapy; Z82.49 Family history of ischemic heart disease and other diseases of the circulatory system; Z80.1 Family history of malignant neoplasm of trachea, bronchus and lung
CPT/HCPCS: 93005 ×2; 96376; 96374; 99285; 36415; 93306; 93351; 85379; 83880; 80061; 80053; 83690; 83735; 84484 ×2; 85025; 85610; 85730; 71046; G0378 ×2; C9113 ×2

== ENCOUNTER → 2019-09-12 | Outpatient (CLI) | payer BC ==
--- NOTE | 2019-09-14 19:32 | XR ---
EXAMINATION TYPE: XR foot complete 3 views LT, XR calcaneus 2V LT DATE OF EXAM: 09/12/2019 COMPARISON: NONE HISTORY: 44-year-old female left foot pain and swelling, M79.672, R22.42 FINDINGS: Spurring along the dorsal talar neck. Small to moderate-sized plantar calcaneal spur and small trucker hand ior calcaneal spur. The subtalar joint appears aligned. Smooth delineation to the Achilles tendon. COMBINED IMPRESSION: 1. Small to moderate sized plantar calcaneal spur and small posterior heel spur. 2. Bony spurring along the dorsal talar neck may contribute to symptoms of anterior ankle impingement . Clinically correlate.
== END | disposition home or self-care (01) ==
LOC: RADXRMAIN 17:01
PROVIDERS: ATTEND Family Medicine
DX: M77.32 Calcaneal spur, left foot (principal); M79.672 Pain in left foot

== ENCOUNTER 2019-09-22 12:06 | Day surgery (SDC) | payer BC ==
[2019-09-18 11:37] VITALS: BMI 35.4
[~2019-09-22 12:06] MED LIST: LACTATED RINGERS 1,000 ML IV SCH
[2019-09-22 12:34] VITALS: TEMP 98.3
[2019-09-22 12:50] LABS: Glucose,Whole Blood 164 mg/dL (75-99)
[2019-09-22] MEDS ORDERED: PROPOFOL 10 MG/ML 20 ML VIAL IV ONE (12:54)
--- NOTE | 2019-09-22 13:07 | P.GSHP ---
History of Present Illness H&P Date: 09/22/19 Chief Complaint: GI bleed, hemorrhoids Is a 44-year-old female who presents today for colonoscopy. Patient issues with hemorrhoids and bleeding. Past Medical History Past Medical History: Diabetes Mellitus, Hypertension Additional Past Medical History / Comment(s): blood in stool, constipation History of Any Multi-Drug Resistant Organisms: None Reported Past Surgical History: Appendectomy, Section, Tubal Ligation Past Anesthesia/Blood Transfusion Reactions: No Reported Reaction Smoking Status: Current every day smoker - Past Family History Mother Family Medical History: Cancer Additional Family Medical History / Comment(s): lung cancer Father Family Medical History: Coronary Artery Disease (CAD) Medications and Allergies Home Medications Medication Instructions Recorded Confirmed Type metFORMIN HCL [Glucophage] 1,000 mg PO DAILY 04/21/19 09/22/19 History Atenolol [Tenormin] 50 mg PO QAM 09/18/19 09/22/19 History Atorvastatin [Lipitor] 20 mg PO HS 09/22/19 09/22/19 History Allergies Allergy/AdvReac Type Severity Reaction Status Date / Time iodine Allergy Anaphylaxis Verified 09/18/19 11:34 Penicillins Allergy Rash/Hives Verified 09/18/19 11:34 shellfish derived Allergy Anaphylaxis Verified 09/18/19 11:34 Sulfa (Sulfonamide Allergy Rash/Hives Verified 09/18/19 11:34 Antibiotics) Surgical - Exam Vital Signs Temp Pulse Resp BP Pulse Ox 98.3 F 71 16 126/81 96 09/22/19 12:32 09/22/19 12:32 09/22/19 12:32 09/22/19 12:32 09/22/19 12:32 - General well developed, well nourished, no distress - Eyes PERRL - ENT normal pinna - Neck no masses - Respiratory normal expansion - Cardiovascular Rhythm: regular - Abdomen Abdomen: soft, non tender - Rectum Internal and external hemorrhoids Results - Labs Abnormal Lab Results - Last 24 Hours (Table) 09/22/19 Range/Units 12:49 POC Glucose (mg/dL) 164 H (75-99) mg/dL Assessment and Plan Assessment: Internal and external hemorrhoids. GI bleed. We'll perform colonoscopy
--- NOTE | 2019-09-22 13:14 | P.OP ---
Date of Procedure: 09/22/19 Preoperative Diagnosis: Internal and external hemorrhoids Postoperative Diagnosis: Internal and external hemorrhoids Right colon polyp Procedure(s) Performed: Colonoscopy Anesthesia: MAC Surgeon: Deonte Porter Pathology: other (Right colon polyp) Condition: stable Disposition: PACU Description of Procedure: Patient's placed on the endoscopy table in the lateral position. She received IV sedation. Digital rectal exam was performed which revealed internal/external hemorrhoids. Flexible colonoscope was then placed patient anus passed throughout the entire colon. The ileocecal valve was visualized. The cecum appeared normal. In the ascending colon a small polyp seen was removed with a cold forcep. Scope was withdrawn remainder the ascending transverse descending and sigmoid colon appeared normal. Scope was then brought back the rectum and this appeared normal. Scope was withdrawn through the anus and internal and external hemorrhoids are noted. There is no active bleeding seen the scope was withdrawn for patient.
[2019-09-22 13:25] VITALS: BP 123/74; PULSE 72; RESP 17
== END 2019-09-22 13:46 | disposition home or self-care (01) ==
LOC: ORWHC2ENDO 12:06
PROVIDERS: ATTEND Surgery
DX: D12.2 Benign neoplasm of ascending colon (principal); K64.8 Other hemorrhoids; K64.4 Residual hemorrhoidal skin tags; K92.2 Gastrointestinal hemorrhage, unspecified; E11.9 Type 2 diabetes mellitus without complications; I10 Essential (primary) hypertension; K59.00 Constipation, unspecified; Z98.51 Tubal ligation status; Z98.890 Other specified postprocedural states; F17.200 Nicotine dependence, unspecified, uncomplicated; Z80.1 Family history of malignant neoplasm of trachea, bronchus and lung; Z82.49 Family history of ischemic heart disease and other diseases of the circulatory system; Z79.84 Long term (current) use of oral hypoglycemic drugs; Z79.899 Other long term (current) drug therapy; Z88.0 Allergy status to penicillin; Z91.013 Allergy to seafood; Z88.2 Allergy status to sulfonamides; Z91.048 Other nonmedicinal substance allergy status
CPT/HCPCS: 81025; 88305; 45380; J2704

== ENCOUNTER 2020-03-01 11:45 | Emergency (ER) | payer BC ==
[2020-03-01] MEDS ORDERED: SODIUM CHLORIDE 0.9% 500 ML 500 ML IV STA (12:37)
[2020-03-01] MEDS ORDERED: HYDROmorphone 1 MG/ML 1 ML SYRINGE IVP STA (12:38)
--- NOTE | 2020-03-01 12:46 | ED ---
General Adult HPI - General Chief complaint: Abdominal Pain Stated complaint: abd pain Time Seen by Provider: 03/01/20 12:00 Source: patient, RN notes reviewed, old records reviewed Mode of arrival: ambulatory Limitations: no limitations - History of Present Illness Initial comments: This is a 44-year-old female who presents emergency Department complaining of left-sided abdominal pain. Patient states it started couple of days ago. Patient states the pain is gotten progressively worse. She states is a 9 out of 10 now. Patient states any Coughing or hitting bumps while driving a car increase the pain significantly. Patient states she's never had anything similar. Patient denies any nausea vomiting. Patient denies any dysuria hematuria urinary frequency. Patient states a little bit of left-sided back pain. Patient denies any fever chills or cough. Patient denies any chest pain or difficulty breathing. - Related Data Home Medications Medication Instructions Recorded Confirmed metFORMIN HCL [Glucophage] 1,000 mg PO BID 04/21/19 03/01/20 atenoloL [Tenormin] 50 mg PO QAM 09/18/19 03/01/20 Atorvastatin [Lipitor] 20 mg PO HS 09/22/19 03/01/20 Dulaglutide [Trulicity] 1.5 mg SQ MO 03/01/20 03/01/20 Gabapentin 300 mg PO HS PRN 03/01/20 03/01/20 Phentermine HCl [Adipex-P] 37.5 mg PO DAILY 03/01/20 03/01/20 Previous Rx's Medication Instructions Recorded Ketorolac [Toradol] 10 mg PO Q6HR #15 tab 03/01/20 Allergies Allergy/AdvReac Type Severity Reaction Status Date / Time iodine Allergy Anaphylaxis Verified 03/01/20 12:47 Penicillins Allergy Rash/Hives Verified 03/01/20 12:47 shellfish derived Allergy Anaphylaxis Verified 03/01/20 12:47 Sulfa (Sulfonamide Allergy Rash/Hives Verified 03/01/20 12:47 Antibiotics) Review of Systems ROS Statement: Those systems with pertinent positive or pertinent negative responses have been documented in the HPI. ROS Other: All systems not noted in ROS Statement are negative. Past Medical History Past Medical History: Diabetes Mellitus, Hypertension Additional Past Medical History / Comment(s): blood in stool, constipation History of Any Multi-Drug Resistant Organisms: None Reported Past Surgical History: Appendectomy, Section, Tubal Ligation Past Anesthesia/Blood Transfusion Reactions: No Reported Reaction Past Psychological History: No Psychological Hx Reported Past Alcohol Use History: Occasional Past Drug Use History: None Reported - Past Family History Mother Family Medical History: Cancer Additional Family Medical History / Comment(s): lung cancer Father Family Medical History: Coronary Artery Disease (CAD) General Exam - General Exam Comments Initial Comments: GENERAL: Patient is well-developed and well-nourished. Patient is nontoxic and well- hydrated and is in moderate distress. ENT: Neck is soft and supple. No significant lymphadenopathy is noted. Oropharynx i s clear. Moist mucous membranes. Neck has full range of motion without eliciting any pain. EYES: The sclera were anicteric and conjunctiva were pink and moist. Extraocular movements were intact and pupils were equal round and reactive to light. Eyelids were unremarkable. PULMONARY: Unlabored respirations. Good breath sounds bilaterally. No audible rales rhonchi or wheezing was noted. CARDIOVASCULAR: There is a regular rate and rhythm without any murmurs gallops or rubs. ABDOMEN: Patient has rebound tenderness in the left midabdomen. SKIN: Skin is clear with no lesions or rashes and otherwise unremarkable. NEUROLOGIC: Patient is alert and oriented x3. Cranial nerves II through XII are grossly intact. Motor and sensory are also intact. Normal speech, volume and content. Symmetrical smile. MUSCULOSKELETAL: Normal extremities with adequate strength and full range of motion. No lower extremity swelling or edema. No calf tenderness. LYMPHATICS: No significant lymphadenopathy is noted PSYCHIATRIC: Normal psychiatric evaluation. Limitations: no limitations Course Vital Signs 03/01/20 11:47 Temperature 98.4 F Pulse Rate 90 Respiratory 18 Rate Blood Pressure 170/113 O2 Sat by Pulse 100 Oximetry Medical Decision Making - Medical Decision Making Computed tomography scan of the abdomen pelvis shows omental infarct in the left upper right knee area of the patient's pain. Patient also has a slightly enlarged liver and spleen. Patient also has some borderline enlarged lymph nodes. - Lab Data Result diagrams: 03/01/20 12:56 03/01/20 12:56 Lab Results 03/01/20 03/01/20 Range/Units 12:56 12:56 WBC 13.4 H (3.8-10.6) k/uL RBC 4.84 (3.80-5.40) m/uL Hgb 13.7 (11.4-16.0) gm/dL Hct 39.2 (34.0-46.0) % MCV 80.8 (80.0-100.0) fL MCH 28.3 (25.0-35.0) pg MCHC 35.0 (31.0-37.0) g/dL RDW 14.7 (11.5-15.5) % Plt Count 225 (150-450) k/uL MPV 6.7 Neutrophils % 68 % Lymphocytes % 15 % Monocytes % 3 % Eosinophils % 12 % Basophils % 1 % Neutrophils # 9.2 H (1.3-7.7) k/uL Lymphocytes # 2.0 (1.0-4.8) k/uL Monocytes # 0.4 (0-1.0) k/uL Eosinophils # 1.6 H (0-0.7) k/uL Basophils # 0.1 (0-0.2) k/uL Sodium 136 L (137-145) mmol/L Potassium 4.1 (3.5-5.1) mmol/L Chloride 105 (98-107) mmol/L Carbon Dioxide 25 (22-30) mmol/L Anion Gap 6 mmol/L BUN 13 (7-17) mg/dL Creatinine 0.69 (0.52-1.04) mg/dL Est GFR (CKD-EPI)AfAm >90 (>60 ml/min/1.73 sqM) Est GFR (CKD-EPI)NonAf >90 (>60 ml/min/1.73 sqM) Glucose 140 H (74-99) mg/dL Calcium 9.4 (8.4-10.2) mg/dL Total Bilirubin 0.6 (0.2-1.3) mg/dL AST 20 (14-36) U/L ALT 15 (4-34) U/L Alkaline Phosphatase 124 (38-126) U/L Total Protein 6.4 (6.3-8.2) g/dL Albumin 3.7 (3.5-5.0) g/dL Amylase <30 L (30-110) U/L Lipase 78 (23-300) U/L Disposition Clinical Impression: Omental infarction, Hepatosplenomegaly Disposition: HOME SELF-CARE Condition: Good Instructions (If sedation given, give patient instructions): Acute Abdominal Pain (DC) Prescriptions: Ketorolac [Toradol] 10 mg PO Q6HR #15 tab Is patient prescribed a controlled substance at d/c from ED?: No Referrals: rT French MD [Primary Care Provider] - 1-2 days Deonte Porter MD [STAFF PHYSICIAN] - 1-2 days Time of Disposition: 14:46
[2020-03-01 13:11] LABS: Basophils # (A) 0.1 k/uL (0-0.2); Basophils % (A) 1 %; Eosinophils # (A) 1.6 k/uL (0-0.7); Eosinophils % (A) 12 %; HCT 39.2 % (34.0-46.0); HGB 13.7 gm/dL (11.4-16.0); Lymphocytes % (A) 15 %; MCH 28.3 pg (25.0-35.0); MCV 80.8 fL (80.0-100.0); Mean Platelet Volume 6.7; Monocytes # (A) 0.4 k/uL (0-1.0); Monocytes % (A) 3 %; Neutrophils # (A) 9.2 k/uL (1.3-7.7); Neutrophils % (A) 68 %; Platelet Count 225 k/uL (150-450); RBC 4.84 m/uL (3.80-5.40); RDW 14.7 % (11.5-15.5); WBC 13.4 k/uL (3.8-10.6)
[2020-03-01] MEDS ORDERED: diphenhydrAMINE 50 MG/ML 1 ML VIAL IVP STA (13:14)
[2020-03-01] MEDS ORDERED: FAMOTIDINE 20 MG/2 ML VIAL IV STA (13:15)
[2020-03-01] MEDS ORDERED: methylPREDNISolone SOD SUCCI 125 MG/2 ML VIAL IV STA (13:16)
[2020-03-01 13:31] LABS: ALT 15 U/L (4-34); AST 20 U/L (14-36); African American GFR (CKD) >90 (>60 ml/min/1.73 sqM); Albumin 3.7 g/dL (3.5-5.0); Alkaline Phosphatase 124 U/L (38-126); Amylase <30 U/L (30-110); Anion Gap 6 mmol/L; Blood Urea Nitrogen 13 mg/dL (7-17); Calcium 9.4 mg/dL (8.4-10.2); Carbon Dioxide 25 mmol/L (22-30); Chloride 105 mmol/L (98-107); Glucose 140 mg/dL (74-99); Lipase 78 U/L (23-300); Non-African American GFR(CKD) >90 (>60 ml/min/1.73 sqM); Potassium 4.1 mmol/L (3.5-5.1); Sodium 136 mmol/L (137-145); Total Bilirubin 0.6 mg/dL (0.2-1.3); Total Protein 6.4 g/dL (6.3-8.2)
--- NOTE | 2020-03-01 14:33 | CT ---
EXAMINATION TYPE: CT abdomen pelvis w con DATE OF EXAM: 03/01/2020 COMPARISON: 09/20/2018 HISTORY: 44-year-old female LUQ pain TECHNIQUE: Contiguous axial scanning of the abdomen and pelvis following administration of 100 ml Iso joel 300 IV contrast. Delayed images through the kidneys and coronal/sagittal reconstructions perform ed. CT DLP: 2290.1 mGycm Automated exposure control for dose reduction was used. FINDINGS: Heart normal size without pericardial effusion. Lung bases clear without pleural effusion. Tiny hiatal hernia. Liver enlarged measuring 23.0 cm low-attenuation without focal liver lesion. Some geographic areas of lower density are present along the anterior liver margin suggesting areas of more concentrated fatt y infiltration. No biliary ductal dilatation. Portal venous system is patent. 1.6 cm gallstone. No abnormal gallbladder distention. Adrenal glands, kidneys, and pancreas appear within normal limits. Spleen is enlarged at 17.0 cm with a hilar splenule. Numerous scattered nonenlarged borderline to mildly enlarged mesenteric lymph nodes measuring up to 1 .3 cm and the left mid abdomen, coronal image 53, and 8 mm in the right mid to lower mesentery, coron al image 49. These are slightly increased in size from prior exam, previously measuring 8 mm and 6 mm , respectively. Fluid-filled small bowel loops mid and lower abdomen. No dilated small bowel, free fluid, or free air . Surgical material at the right lower quadrant relating to prior appendectomy. Scattered mild stool within the right side of the colon. No pericolonic inflammatory change. There is a focal area of soft tissue density with surrounding fat stranding in the upper left omentum measuring 2.6 x 1.6 cm, new from prior exam. Bladder partially distended. Uterus anteverted. Bilateral tubal ligation clips. Both ovaries are visu alized. No abnormal fluid collection the pelvis or pelvic lymphadenopathy. Bones: Degenerative change of the pubic symphysis is mild spurring at the hips. No osseous destructiv e process. IMPRESSION: 1. NEW FOCAL 2.6 CM AREA OF INFLAMMATORY CHANGE WITHIN THE UPPER LEFT OMENTUM. FINDINGS SUSPECTED TO REPRESENT A SMALL OMENTAL INFARCTION. 2. PROMINENT FLUID-FILLED SMALL BOWEL LOOPS THROUGHOUT THE LOWER ABDOMEN AND PELVIS AND BORDERLINE SI ZED MESENTERIC LYMPH NODES, INCREASED IN SIZE FROM 09/20/2018. A COUPLE LYMPH NODES ARE ENLARGED AT 1. 3 CM. CORRELATE FOR ENTERITIS/MESENTERIC ADENITIS. 3. GIVEN HEPATOSPLENOMEGALY (LIVER 23.0 CM AND SPLEEN 17.0 CM), THREE-MONTH FOLLOW-UP CT IS RECOMMEND ED TO ENSURE STABILITY/RESOLUTION OF THE MESENTERIC LYMPH NODES. FURTHER CLINICAL CORRELATION TO T HE SPLENOMEGALY. THERE IS UNDERLYING HEPATIC STEATOSIS.
[2020-03-01] MEDS ORDERED: KETOROLAC 15 MG/ML 1 ML VIAL IVP STA (14:43)
[2020-03-01] MEDS ORDERED: ACET/COD 300 MG/30 MG STARTER PACK 6 TAB BTL PO STA (14:47)
[2020-03-01 15:14] VITALS: BP 124/87; PULSE 89; RESP 16; TEMP 97
== END 2020-03-01 15:14 | disposition home or self-care (01) ==
LOC: EC 11:45
DX: K55.029 Acute infarction of small intestine, extent unspecified (principal); R16.2 Hepatomegaly with splenomegaly, not elsewhere classified; E11.9 Type 2 diabetes mellitus without complications; I10 Essential (primary) hypertension; Z79.84 Long term (current) use of oral hypoglycemic drugs; Z79.899 Other long term (current) drug therapy; Z88.0 Allergy status to penicillin; Z88.2 Allergy status to sulfonamides; Z91.013 Allergy to seafood; Z91.041 Radiographic dye allergy status; Z90.49 Acquired absence of other specified parts of digestive tract
CPT/HCPCS: 80053; 82150; 83690; 85025; 74177; 99285; 96374; 96375 ×4; 96361 ×2; J1200; J2930; J1170; J1885; Q9967

== ENCOUNTER → 2021-11-01 | Outpatient (CLI) | payer BC | END | disposition home or self-care (01) | LOC: CPPFTMAIN 16:45 | PROVIDERS: ATTEND Family Medicine | DX: R05.9 Cough, unspecified (principal) | CPT/HCPCS: 94060; 94726; 94729 ==

== ENCOUNTER → 2021-11-16 | Outpatient (CLI) | payer BC ==
--- NOTE | 2021-11-16 11:05 | CA ---
Stress Echo Report Roseline Rodriges Age: 46 Gender: F : 1975 Exam Date: 11/16/2021 09:16 Exam Location: [facility] Ht (in): 69 Wt (lb): 250 Ordering Physician: Justin Butts MD Referring Physician: Chery Rivera [facility] Preparation Room Manager: JEFFREY Technologist Procedure CPT: Indication: R94.31 ABNORMAL EKG ICD-9 Codes: Rhythm: Patient History: CHEST PAIN, HTN, ELEVATED CHOLESTEROL, FAMILY HX OF HEART DISEASE, FORMER SMOKER Cardiac Medications: ATENOLOL, METFORMIN, ZEMPEC, STATIN Medications in past 24 hours: Contrast: Stress Results Protocol: Александр Total dose(mL): Exercise Duration (min:sec): Max ST Depression (mm): Angina Score: Becker Score: METS: 9.3 Resting HR: 85 Resting BP: 138 / 86 Peak HR: 124 Peak BP: 192 / 101 Max Predicted HR: 175 71 % Max Predicted HR Target HR: 149 Double Product: [id number] Stress Summary: BP Response: Reason for Termination: Cardiac Symptoms: ECG Analysis Resting ECG: Stress ECG: Arrhythmia: Echo Analysis Resting Echo: Peak Echo Analysis: MEASUREMENTS (Male/Female) Normal Values CONCLUSIONS Good exercise tolerance Normal EKG in response to exercise Chest discomfort and shortness of breath in response to exercise The study technically was difficult and wall motion abnormalities concerning for ischemia, be totally excluded Further investigation to rule out severe CAD is advised Dr. Yung Jaquez MD (Electronically Signed) Final Date: 16 November 2021 11:04
== END | disposition home or self-care (01) ==
LOC: RADNMMAIN 08:40
PROVIDERS: ATTEND Family Medicine
DX: R94.31 Abnormal electrocardiogram [ECG] [EKG] (principal)
CPT/HCPCS: 93351